=== PATIENT | female | born 1970 | race African-American/Black ===

== ENCOUNTER 2018-06-02 07:35 | Emergency (ER) | payer OTHER ==
[2018-06-02] MEDS ORDERED: Pantoprazole 40 MG VIAL ONE (08:14)
[2018-06-02] MEDS ORDERED: Metoclopramide HCl 10 MG/2 ML VIAL ONE (08:14)
[2018-06-02 08:42] LABS: ALT (SGPT) 38 U/L (8-55); AST (SGOT) 27 U/L (5-34); Alkaline Phosphatase 262 U/L (40-150); Anion Gap 16 mmol/L (10-20); BUN (Urea Nitrogen) 17 mg/dL (7.0-18.7); Bilirubin, Total 0.6 mg/dL (0.2-1.2); CK (CPK) 22 U/L (29-168); Calc. Creatinine Clearance 0 mL/min (70-130); Calcium 10.1 mg/dL (7.8-10.44); Carbon Dioxide 26 mmol/L (22-29); Chloride 104 mmol/L (98-107); Estimated GFR-MDRD 89; Glucose 88 mg/dL (70-105); Lipase 8 U/L (8-78); Potassium 3.6 mmol/L (3.5-5.1); Sodium 142 mmol/L (136-145)
[2018-06-02 08:43] LABS: CKMB Less than 0.1 ng/mL (0-6.6); Troponin I Less than 0.010 ng/mL (< 0.028)
[2018-06-02 09:00] LABS: #Basophils 0.1 thou/uL (0.0-0.2); #Lymphocytes 1.8 thou/uL (1.20-3.40); #Monocytes 0.7 thou/uL (0.11-0.59); %Basophils 1.5 % (0.0-1.0); %Eosinophils 0.4 % (0.0-10.0); %Lymphocytes 23.3 % (21.0-51.0); %Monocytes 8.6 % (0.0-10.0); %Neutrophils 66.2 % (42.0-75.0); Hemoglobin 9.4 g/dL (12.0-16.0); Mean Corpuscular Volume 70.9 fL (78.0-98.0); Mean Platelet Volume 5.6 fL (7.4-10.4); Platelet Count 693 thou/uL (130-400); RBC Distribution Width 16.6 % (11.5-14.5); Red Blood Cell (RBC) Count 4.27 mill/uL (4.20-5.40); White Blood Cell (WBC) Count 7.6 thou/uL (4.8-10.8)
[2018-06-02] MEDS ORDERED: Sodium Chloride 0.9% 1,000 ML ONE (09:05)
[2018-06-02] MEDS ORDERED: Ondansetron HCl/PF 4 MG/2 ML Vial ONE (09:11)
[2018-06-02] MEDS ORDERED: Bisacodyl 10 MG SUPP ONE (09:11)
[2018-06-02] MEDS ORDERED: Ketorolac Tromethamine 30 MG/ML VIAL ONE (09:11)
--- NOTE | 2018-06-02 09:14 | RAD ---
CHEST TWO VIEWS: History: Chest pain. Comparison: 11-02-16 FINDINGS: Cardiac silhouette and pulmonary vasculature are unremarkable. Focal infiltrate anterior segment righ t upper lobe. No pneumothorax or pleural fluid. telephone lineman leads overlie the chest. IMPRESSION: Right upper lobe infiltrate. Clinical correlation regarding other signs and symptoms of right upper l obe pneumonitis is required. Please consider radiographic follow up after medical treatment to evalua te for clearing. POS: [facility]
--- NOTE | 2018-06-02 09:25 | RAD ---
ABDOMEN TWO VIEWS: History: Left sided chest pain, nausea, vomiting. FINDINGS/IMPRESSION: Correlation is made with the chest radiograph of same day. No free air or diffuse fluid levels are seen. The bowel gas pattern is unremarkable. There is fecal m aterial in the colon. No suspicious calcifications are seen. POS: [facility]
[2018-06-02] MEDS ORDERED: Levofloxacin 500 mg/D5W 100 ml Premix Bag ONE (11:14)
[2018-06-02] MEDS ORDERED: diphenhydrAMINE 50 MG/ML VIAL ONE (11:20)
[2018-06-02 12:18] LABS: Bilirubin Moderate (Negative); Blood, Urine Negative (Negative); Clarity Slightly Cloudy (Clear); Glucose, Urine (Dipstick) Negative (Negative); Leukocyte Small (Negative); Nitrite Negative (Negative); Protein, Urine (Dipstick) Trace mg/dL (Neg-Trace); Specific Gravity, Urine 1.025 (1.005-1.030); pH, Urine 5.5 (5.0-9.0)
[2018-06-02 12:29] LABS: Bacteria/HPF 1+ HPF (None Seen); Trichomonas/HPF 1+ HPF (None Seen)
== END 2018-06-02 13:20 | disposition home or self-care (01) ==
LOC: NAV ERS 07:35
DX: K59.00 Constipation, unspecified (principal); J18.9 Pneumonia, unspecified organism; A59.01 Trichomonal vulvovaginitis; I48.91 Unspecified atrial fibrillation; I10 Essential (primary) hypertension; Z79.82 Long term (current) use of aspirin; Z79.899 Other long term (current) drug therapy
CPT/HCPCS: 36415; 71046; 74019; 80053; 81003; 81015; 82553; 83690; 84484; 85025; 93005; 96361; 96365; 96367; 96375; C9113; J1200; J1885; J1956; J2405; J2765; J7050